=== PATIENT | female | born 1960 | race Caucasian/White ===

== ENCOUNTER 2019-04-18 08:39 | Emergency (ER) | payer OTHER ==
[2019-04-18 09:02] VITALS: BP 132/74
--- NOTE | 2019-04-18 09:17 | UC ---
Complaint Female HPI - HPI Summary HPI Summary: Pt presents with c/o sudden onset of pelvic pressure, urinary frequency, urgency , and dysuria X 2 days. Pt is visiting from [place] and has been sitting in a car for prolonged periods of time and not drinking much liquids. - History Of Current Complaint Stated Complaint: URINARY Time Seen by Provider: 04/18/19 08:54 Hx Obtained From: Patient ?: No Onset/Duration: Sudden Onset, Lasting Days, Still Present Timing: Constant Severity Initially: Mild Pain Intensity: 0 - Allergies/Home Medications Allergies/Adverse Reactions: Allergies Allergy/AdvReac Type Severity Reaction Status Date / Time No Known Allergies Allergy Verified 04/18/19 09:03 Home Medications: Home Medications ARIPiprazole [Abilify] 1 mg PO DAILY 04/18/19 [History Confirmed 04/18/19] Sertraline HCl [Zoloft] 150 mg PO DAILY 04/18/19 [History Confirmed 04/18/19] PMH/Surg Hx/FS Hx/Imm Hx Previously Healthy: Yes - Surgical History Surgical History: None - Family History Known Family History: Positive: Cardiac Disease - Social History Occupation: Employed Full-time Lives: With Family Alcohol Use: Occasionally Substance Use Type: None Smoking Status (MU): Never Smoked Tobacco Have You Smoked in the Last Year: No Review of Systems All Other Systems Reviewed And Are Negative: Yes Constitutional: Positive: Negative Skin: Positive: Negative Eyes: Positive: Negative ENT: Positive: Negative Respiratory: Positive: Negative Cardiovascular: Positive: Negative Gastrointestinal: Positive: Abdominal Pain - pelvic pressure Genitourinary: Positive: Dysuria, Frequency, Urgency Motor: Positive: Negative Neurovascular: Positive: Negative Musculoskeletal: Positive: Negative Neurological: Positive: Negative Psychological: Positive: Negative Is Patient Immunocompromised?: No Physical Exam Triage Information Reviewed: Yes Appearance: Well-Appearing Vital Signs: Initial Vital Signs Temp 97.3 F 04/18/19 08:58 Pulse 60 04/18/19 08:58 Resp 16 04/18/19 08:58 BP 132/74 04/18/19 08:58 Pulse Ox 100 04/18/19 08:58 Vital Signs Reviewed: Yes Eye Exam: Normal ENT Exam: Normal Dental Exam: Normal Neck exam: Normal Respiratory Exam: Normal Cardiovascular Exam: Normal Abdominal Exam: Normal Abdomen Description: Positive: Nontender Musculoskeletal Exam: Normal Neurological Exam: Normal Psychological Exam: Normal Skin Exam: Normal Complaint Female Dx - Differential Dx/Diagnosis Differential Diagnosis/HQI/PQRI: Ureteral Stone, Urinary Tract Infection Provider Diagnosis: Dysuria Discharge ED - Sign-Out/Discharge Documenting (check all that apply): Patient Departure All imaging exams completed and their final reports reviewed: No Studies - Discharge Plan Condition: Stable Disposition: HOME Prescriptions: Nitrofurantoin Monohyd/M-Cryst [Macrobid 100 mg Capsule] 100 mg PO Q12H #10 cap Patient Education Materials: Dysuria (ED) Referrals: [facility] [Outside] No Primary Care Phys,NOPCP [Primary Care Provider] - - Billing Disposition and Condition Condition: STABLE Disposition: Home
== END 2019-04-18 09:29 | disposition home or self-care (01) ==
LOC: UCCORT 08:39
DX: R30.0 Dysuria (principal); R35.0 Frequency of micturition; R39.15 Urgency of urination; R10.9 Unspecified abdominal pain
CPT/HCPCS: 81003; 87086; 99202; G0463